=== PATIENT | female | born 1990 | race African-American/Black ===

== ENCOUNTER 2018-05-29 07:09 | Emergency (ER) | payer OTHER ==
[~2018-05-29] VITALS: Ht 170.2 cm; Wt 84.4 kg
[2018-05-29 07:18] VITALS: BP 113/73
== END 2018-05-29 08:49 | disposition home or self-care (01) ==
LOC: ER 07:09
DX: O22.43 Hemorrhoids in pregnancy, third trimester (principal); Z3A.32 32 weeks gestation of pregnancy